=== PATIENT | female | born 1990 | race Caucasian/White ===

== ENCOUNTER 2016-03-02 15:08 | Emergency (ER) | payer OTHER ==
[~2016-03-02 15:08] MED LIST: /TIZA4TA PO; ACET50TA PO; GABA-283 PO; GABA300C2 PO; HYDR-2808 PO; HYDR1TAB97 PO; IBUP80TA PO; METH10CO PO; flexeril PO
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
--- NOTE | 2016-03-02 16:33 | EDDOCDS ---
Physician Documentation [facility] Name: Shellie Oliva Age: 25 yrs Sex: Female : 1990 Arrival Date: 03/02/2016 Time: 15:08 Bed PR Private MD: NO PRIMARY PHYSICIAN, . Disposition: 03/02/16 16:17 Discharged to Home/Self Care. Impression: Superficial injury of head. - Condition is Stable. - Discharge Instructions: Eye Contusion, Head Injury, Adult. - Medication Reconciliation form. - Follow up: Emergency Department; When: As needed; Reason: Worsening of conditions. Follow up: Private Physician; When: Call to arrange an appointment; Reason: Wound/Symptom Recheck, Recheck today's complaints, Worsening of conditions, Continuance of care. - Problem is new. - Symptoms are unchanged. - Notes: May take tylenol as needed for pain. Historical: - Allergies: no known allergies; - Home Meds: 1. Methadone 36mg Oral once daily (Last dose: 03/02/2016 05:30) - PMHx: Substance Abuse; - PSHx: Tonsillectomy; laprascopy; - Social history: Smoking status: Patient uses tobacco products, current every day smoker. Patient/guardian denies using alcohol, street drugs, the patient reports quitting approximately 1 years ago, No barriers to communication noted, The patient speaks fluent Croatian, Speaks appropriately for age. - Family history: Not pertinent. - : The pt / caregiver states he / she is not on anticoagulants. Home medication list is obtained from the patient. - Exposure Risk Screening:: None identified. 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 2 in. (157.48 cm) (R); Pain 9/10; 16:31 BP 135 / 68; Pulse 84; Resp 18; Temp 97(T); Pulse Ox 98% on R/A; rs3 15:10 Body Mass Index 30.00 (74.39 kg, 157.48 cm) gr2 MDM: 15:34 Nasal Bones Ordered. EDMS 16:30 [facility] Payment Agreement was scanned into [employer] and attached to record. jp5 16:30 Financial registration complete. jp5 Signatures: Dispatcher [employer] EDMS Natasha Ovalle,RN RN rs3 Emmie Tinajero RN RN ttb Ricky Cervantes, PAAkbarC PA-C cc10 Sarah Bales jp5 The chart was reviewed and I authenticate all verbal orders and agree with the evaluation and treatment provided.Attachments: 16:30 [facility] Payment Agreement jp5 MTDD
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
--- NOTE | 2016-03-04 17:33 | EDDOCDS ---
[facility] Name: Shellie Oliva Age: 25 yrs Sex: Female : 1990 Arrival Date: 03/02/2016 Time: 15:08 Bed PR Private MD: NO PRIMARY PHYSICIAN, . Disposition: 03/02/16 16:17 Discharged to Home/Self Care. Impression: Superficial injury of head. - Condition is Stable. - Discharge Instructions: Eye Contusion, Head Injury, Adult. - Medication Reconciliation form. - Follow up: Emergency Department; When: As needed; Reason: Worsening of conditions. Follow up: Private Physician; When: Call to arrange an appointment; Reason: Wound/Symptom Recheck, Recheck today's complaints, Worsening of conditions, Continuance of care. - Problem is new. - Symptoms are unchanged. - Notes: May take tylenol as needed for pain. Historical: - Allergies: no known allergies; - Home Meds: 1. Methadone 36mg Oral once daily (Last dose: 03/02/2016 05:30) - PMHx: Substance Abuse; - PSHx: Tonsillectomy; laprascopy; - Social history: Smoking status: Patient uses tobacco products, current every day smoker. Patient/guardian denies using alcohol, street drugs, the patient reports quitting approximately 1 years ago, No barriers to communication noted, The patient speaks fluent [place] Islander, Speaks appropriately for age. - Family history: Not pertinent. - : The pt / caregiver states he / she is not on anticoagulants. Home medication list is obtained from the patient. - Exposure Risk Screening:: None identified. 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 2 in. (157.48 cm) (R); Pain 9/10; 16:31 BP 135 / 68; Pulse 84; Resp 18; Temp 97(T); Pulse Ox 98% on R/A; rs3 15:10 Body Mass Index 30.00 (74.39 kg, 157.48 cm) gr2 MDM: 15:34 Nasal Bones Ordered. EDMS 16:30 [facility] Payment Agreement was scanned into [employer] and attached to record. jp5 16:30 Financial registration complete. jp5 03/03 07:52 T-Sheet-- Draft Copy was scanned into [employer] and attached to record. gb Signatures: Dispatcher [employer] EDMS Anca Llamas, Reg Reg gb Natasha Ovalle,RN RN rs3 Emmie Tinajero RN RN ttb Ricky Cervantes PA-C PA-C cc10 Sarah Bales jp5 The chart was reviewed and I authenticate all verbal orders and agree with the evaluation and treatment provided.Attachments: 03/02 16:30 [facility] Payment Agreement jp5 03/03 07:52 T-Sheet-- Draft Copy gb Chart Complete MTDD
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
--- NOTE | 2016-03-04 17:33 | EDDOCDS ---
Physician Documentation [facility] Name: Shellie Oliva Age: 25 yrs Sex: Female : 1990 Arrival Date: 03/02/2016 Time: 15:08 Bed PR Private MD: NO PRIMARY PHYSICIAN, . Disposition: 03/02/16 16:17 Discharged to Home/Self Care. Impression: Superficial injury of head. - Condition is Stable. - Discharge Instructions: Eye Contusion, Head Injury, Adult. - Medication Reconciliation form. - Follow up: Emergency Department; When: As needed; Reason: Worsening of conditions. Follow up: Private Physician; When: Call to arrange an appointment; Reason: Wound/Symptom Recheck, Recheck today's complaints, Worsening of conditions, Continuance of care. - Problem is new. - Symptoms are unchanged. - Notes: May take tylenol as needed for pain. Historical: - Allergies: no known allergies; - Home Meds: 1. Methadone 36mg Oral once daily (Last dose: 03/02/2016 05:30) - PMHx: Substance Abuse; - PSHx: Tonsillectomy; laprascopy; - Social history: Smoking status: Patient uses tobacco products, current every day smoker. Patient/guardian denies using alcohol, street drugs, the patient reports quitting approximately 1 years ago, No barriers to communication noted, The patient speaks fluent Polish, Speaks appropriately for age. - Family history: Not pertinent. - : The pt / caregiver states he / she is not on anticoagulants. Home medication list is obtained from the patient. - Exposure Risk Screening:: None identified. 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 2 in. (157.48 cm) (R); Pain 9/10; 16:31 BP 135 / 68; Pulse 84; Resp 18; Temp 97(T); Pulse Ox 98% on R/A; rs3 15:10 Body Mass Index 30.00 (74.39 kg, 157.48 cm) gr2 MDM: 15:34 Nasal Bones Ordered. EDMS 16:30 [facility] Payment Agreement was scanned into [employer] and attached to record. jp5 16:30 Financial registration complete. jp5 03/03 07:52 T-Sheet-- Draft Copy was scanned into [employer] and attached to record. gb Signatures: Dispatcher [employer] EDMS Anca Llamas, Reg Reg gb Natasha Ovalle,RN RN rs3 Emmie Tinajero RN RN ttb Ricky Cervantes PA-C PA-C cc10 Sarah Bales jp5 The chart was reviewed and I authenticate all verbal orders and agree with the evaluation and treatment provided.Attachments: 03/02 16:30 [facility] Payment Agreement jp5 03/03 07:52 T-Sheet-- Draft Copy gb Chart Complete MTDD
== END 2016-03-02 16:33 | disposition home or self-care (01) ==
LOC: M ED 15:08
DX: S00.12XA Contusion of left eyelid and periocular area, initial encounter (principal); Y04.0XXA Assault by unarmed brawl or fight, initial encounter; Y92.019 Unspecified place in single-family (private) house as the place of occurrence of the external cause; Y93.89 Activity, other specified; Y99.8 Other external cause status; Z72.0 Tobacco use; Z79.891 Long term (current) use of opiate analgesic

== ENCOUNTER 2016-07-18 06:02 | Inpatient (IN) | payer OTHER ==
[~2016-07-18] VITALS: Ht 157.5 cm; Wt 77.0 kg
[~2016-07-18 06:02] MED LIST changes: +HYDR-3713 PO; -HYDR1TAB97 PO
[2016-07-18 06:17] VITALS: BP 150/82
[2016-07-18 06:24] VITALS: BP 122/81
[2016-07-18] MEDS ORDERED: RHOGAM 300 MCG (1500 IU) INJ (J2790) IM SCH (07:00)
[2016-07-18] MEDS ORDERED: MEASLES,MUMPS,RUBELLA VACCINE INJ (MMR-II) (90707) SC SCH (07:00)
[2016-07-18] MEDS ORDERED: ONDANSETRON 4MG/2ML VIAL (J2405) IV PRN (07:00)
[2016-07-18] MEDS ORDERED: DIBUCAINE 1% OINTMENT 30GM TOP PRN (07:00)
[2016-07-18] MEDS ORDERED: DOCUSATE SODIUM 100 MG CAP PO PRN (07:00)
[2016-07-18] MEDS ORDERED: OXYTOCIN INJ 10 UNITS/ML VIAL (J2590) IM ONE (07:00)
[2016-07-18] MEDS ORDERED: METHYLERGONOVINE MALEATE 0.2 MG TAB PO PRN (07:00)
[2016-07-18 07:29] VITALS: BP 143/81
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
[2016-07-18] MEDS: ACETAMINOPHEN 500 MG TAB PO PRN ×3 (07:49→19:57)
[2016-07-18] MEDS: IBUPROFEN 800 MG TAB PO PRN ×2 (07:49→18:00)
[2016-07-18] MEDS: METHADONE 10 MG TAB (S0109) PO SCH (07:50)
[2016-07-18 07:57] VITALS: BP 132/83
[2016-07-18 09:00] VITALS: BP 141/89
[2016-07-18] MEDS: PRENATAL VITAMIN TAB PO SCH (09:00)
--- NOTE | 2016-07-18 17:38 | DN ---
DATE OF DELIVERY: 07/18/2016 PREDELIVERY DIAGNOSIS: 39-1/7 weeks gestation in labor. POSTDELIVERY DIAGNOSIS: Delivered. PROCEDURE: Spontaneous vaginal delivery. 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 Timothy Pennington ANESTHESIA: None. ESTIMATED BLOOD LOSS: 300 mL. FINDINGS: 6 pound 5 ounce male infant. scores 8 and 9. DELIVERY SUMMARY: After a short second stage, patient had spontaneous delivery of a 6 pound 5 ounce male infant, scores 8 and 9 with no delivery anesthesia. There was no nuchal cord. The shoulders delivered with ease. The cried spontaneously and was handed to the mother. Cord was doubly clamped and cut. Placenta delivered spontaneously and appeared to be intact. The patient received Pitocin intramuscular injection since there was no IV access. There were no vaginal lacerations present. Sponge counts were correct.
[2016-07-18 18:00] VITALS: BP 153/75
[2016-07-18 18:25] LABS: METHADONE URINE POSITIVE (NEGATIVE)
[2016-07-19] MEDS: IBUPROFEN 800 MG TAB PO PRN ×2 (04:55→21:33)
[2016-07-19 06:01] VITALS: BP 133/81
[2016-07-19] MEDS: METHADONE 10 MG TAB (S0109) PO SCH (08:00)
[2016-07-19] MEDS: PRENATAL VITAMIN TAB PO SCH (08:40)
[2016-07-19 17:30] VITALS: BP 139/82
[2016-07-20 05:34] VITALS: BP 144/84
[2016-07-20] MEDS: METHADONE 10 MG TAB (S0109) PO SCH (07:00)
[2016-07-20] MEDS: PRENATAL VITAMIN TAB PO SCH (07:45)
[2016-07-20] MEDS: IBUPROFEN 800 MG TAB PO PRN (07:50)
[2016-07-20] MEDS ORDERED: ADACEL/BOOSTRIX VACCINE (DIPHTH/PERTUSS/ACELL/TETANUS)0.5ML SYR (90715) IM ONE (09:00)
[2016-07-20] MEDS ORDERED: MIRALAX *UNIT DOSE* 17GM PACKET PO SCH (09:00)
[2016-07-20] MEDS ORDERED: IBUP-1114 PO (10:19)
[2016-07-22 14:12] LABS: GC Benzoylecgon 9000 ng/mL (Cutoff=150); GC Methadone 1850 ng/mL (Cutoff=100)
== END 2016-07-20 11:05 | disposition home or self-care (01) | DRG 560 ==
LOC: M LDI 06:02 → M OBS 08:38
PROVIDERS: ADMIT Specialist; ATTEND Specialist
PROC: 10E0XZZ Delivery of Products of Conception, External Approach (ICD-10-PCS; principal; 2016-07-18)
DX: O99.334 Smoking (tobacco) complicating childbirth (principal); F11.21 Opioid dependence, in remission; Z37.0 Single live birth; Z3A.39 39 weeks gestation of pregnancy; F17.210 Nicotine dependence, cigarettes, uncomplicated; O09.33 Supervision of pregnancy with insufficient antenatal care, third trimester; F14.21 Cocaine dependence, in remission; Z79.899 Other long term (current) drug therapy; O99.324 Drug use complicating childbirth

== ENCOUNTER 2016-09-04 15:11 | Emergency (ER) | payer OTHER ==
[~2016-09-04] VITALS: Ht 157.5 cm; Wt 65.2 kg
[~2016-09-04 15:11] MED LIST changes: +IBUP-1114 PO
[2016-09-04] MEDS ORDERED: SOMA350T PO (17:16)
[2016-09-04] MEDS ORDERED: IBUP-1022 PO (17:20)
[2016-09-04 17:23] VITALS: BP 122/76
[2016-09-04] MEDS ORDERED: IBUPROFEN 600 MG TAB PO ONE (17:30)
[2016-09-04] MEDS ORDERED: CARISOPRODOL 350 MG TAB PO ONE (17:30)
== END 2016-09-04 17:34 | disposition home or self-care (01) ==
LOC: M ED 15:11
DX: M54.5 Low back pain (principal); Z87.891 Personal history of nicotine dependence

== ENCOUNTER 2016-11-03 10:02 | Emergency (ER) | payer OTHER ==
[~2016-11-03] VITALS: Ht 157.5 cm; Wt 69.0 kg
[~2016-11-03 10:02] MED LIST changes: +IBUP-1022 PO; +SOMA350T PO
[2016-11-03 10:07] VITALS: BP 125/80
== END 2016-11-03 10:45 | disposition home or self-care (01) ==
LOC: M ED 10:02 → EDBD 10:02 → M ED 10:45
DX: T40.1X1A Poisoning by heroin, accidental (unintentional), initial encounter (principal); Z72.0 Tobacco use

== ENCOUNTER 2016-12-09 09:18 | Emergency (ER) | payer OTHER ==
[~2016-12-09] VITALS: Ht 157.5 cm; Wt 75.0 kg
[2016-12-09 09:28] VITALS: BP 158/77
== END 2016-12-09 11:49 | disposition home or self-care (01) ==
LOC: EDBD 09:18 → M ED 09:18
DX: F11.10 Opioid abuse, uncomplicated (principal); F17.210 Nicotine dependence, cigarettes, uncomplicated

== ENCOUNTER 2017-02-01 18:32 | Emergency (ER) | payer MEDICAID, OTHER ==
[~2017-02-01] VITALS: Ht 157.5 cm; Wt 72.7 kg
[2017-02-01 18:33] VITALS: BP 127/84
[2017-02-01] MEDS ORDERED: KEFL500C17 PO (18:40)
[2017-02-01] MEDS ORDERED: GABA800T PO (18:40)
[2017-02-01] MEDS ORDERED: IBUP-1022 PO (19:31)
[2017-02-01] MEDS ORDERED: CLEO300C2 PO (19:31)
== END 2017-02-01 19:40 | disposition home or self-care (01) ==
LOC: M ED 18:32
DX: L03.114 Cellulitis of left upper limb (principal); H00.016 Hordeolum externum left eye, unspecified eyelid; F11.10 Opioid abuse, uncomplicated; F17.210 Nicotine dependence, cigarettes, uncomplicated

== ENCOUNTER 2017-04-20 23:34 | Emergency (ER) | payer OTHER | END 2017-04-21 00:13 | disposition left against medical advice (07) | LOC: M ED 23:34 | DX: Z53.29 Procedure and treatment not carried out because of patient's decision for other reasons (principal) ==

== ENCOUNTER 2017-07-28 15:54 | Emergency (ER) | payer OTHER ==
[2017-07-28] MEDS: PERCOCET 5MG/325MG TAB PO (18:04)
== END 2017-07-28 18:21 | disposition home or self-care (01) ==
LOC: M ED 15:54
DX: O99.89 Other specified diseases and conditions complicating pregnancy, childbirth and the puerperium (principal); M25.511 Pain in right shoulder; Z3A.25 25 weeks gestation of pregnancy; O99.332 Smoking (tobacco) complicating pregnancy, second trimester; F17.210 Nicotine dependence, cigarettes, uncomplicated
CPT/HCPCS: 99284

== ENCOUNTER 2017-07-29 21:11 | Inpatient (IN) | payer OTHER ==
[2017-07-29] MEDS: NS 1,000 ML IV (22:00)
[2017-07-29 22:35] LABS: VENOUS BASE EXCESS -6.7 (-2.0-2.0); VENOUS HCO3 15.7 MEQ/L (23.0-27.0); VENOUS O2 SATURATION 99.5 % (60.0-80.0); VENOUS PARTIAL PRESSURE CO2 23.6 mmHg (38.0-50.0); VENOUS PARTIAL PRESSURE O2 190.5 mmHg (30.0-50.0); VENOUS TOTAL CO2 16.4 MEQ/L (24.0-28.0)
[2017-07-29 22:39] LABS: HEMATOCRIT 32.1 % (36.0-47.0); HEMOGLOBIN 11.1 g/dl (12.0-15.5); MEAN CORPUSCULAR HEMOGLOBIN 29.2 pg (27.0-33.0); MEAN CORPUSCULAR HGB CONC 34.6 g/dl (32.0-36.5); MEAN CORPUSCULAR VOLUME 84.5 fl (80.0-96.0); PLATELET COUNT, AUTOMATED 132 10^3/uL (150-450); WHITE BLOOD COUNT 14.5 10^3/uL (4.0-10.0)
[2017-07-29 22:42] LABS: POS COUNT POS FLAG; POSITIVE MORPH POS FLAG
[2017-07-29 22:43] LABS: ADD MANUAL DIFFER YES; DIFF SLIDE NUMBER 151
[2017-07-29 22:58] LABS: ACETAMINOPHEN LEVEL < 2.0 UG/ML (10.0-30.0); ALBUMIN 1.6 GM/DL (3.2-5.2); ALBUMIN/GLOBULIN RATIO 0.36 (1.00-1.93); ALT/SGPT 12 U/L (12-78); ANION GAP 12 MEQ/L (8-16); AST/SGOT 30 U/L (7-37); BILIRUBIN,DIRECT 0.4 MG/DL (0.0-0.2); BILIRUBIN,TOTAL 0.6 MG/DL (0.2-1.0); BLOOD UREA NITROGEN 21 MG/DL (7-18); CALCIUM LEVEL 7.3 MG/DL (8.5-10.1); CARBON DIOXIDE LEVEL 17 MEQ/L (21-32); CHLORIDE LEVEL 101 MEQ/L (98-107); CPK CREATINE PHOSPHOKINASE 227 U/L (26-192); CREATININE FOR GFR 1.44 MG/DL (0.55-1.30); GLOMERULAR FILTRATION RATE 46.1 (>60); GLUCOSE, FASTING 113 MG/DL (70-100); POTASSIUM SERUM 2.8 MEQ/L (3.5-5.1); SALICYLATE LEVEL < 1.7 MG/DL (5.0-30.0); SODIUM LEVEL 130 MEQ/L (136-145); TOTAL PROTEIN 6.1 GM/DL (6.4-8.2); TROPONIN I < 0.02 NG/ML (< 0.10)
[2017-07-29 22:59] LABS: ALKALINE PHOSPHATASE 122 U/L (45-117); CK-MB VALUE MASS 6.4 NG/ML (<3.6); MB/CK RELATIVE INDEX 2.81 (< OR =4)
[2017-07-29 23:10] LABS: ATYPICAL LYMPH 1 % (0-5); BANDS 8 % (< 11); BURR CELLS 2+; LYMPHOCYTES 6 % (16-52); MONOCYTES 4 % (0-8); MYELOCYTES 1 % (0-0); NEUTROPHILS 80 % (35-75); PLATELET CLUMPS MODERATE AMT; PLATELET ESTIMATE NORMAL (NORMAL)
[2017-07-29 23:11] LABS: TOXIC GRANULATION 1+
[2017-07-29 23:12] LABS: TOXIC VACUOLATION 1+
[2017-07-30] MEDS: POTASSIUM CHLORIDE 10 MEQ SR TABLET PO ×2 (00:27→14:26)
[2017-07-30] MEDS: ENOXAPARIN 80 MG/0.8 ML SYRINGE (J1650) SC (01:21)
[2017-07-30] MEDS ORDERED: ACETAMINOPHEN 650 MG SUPP PR (01:30)
[2017-07-30 01:52] LABS: INR 1.18; PROTHROMBIN TIME 15.2 SECONDS (12.4-14.5)
[2017-07-30] MEDS: PIPERACILLIN/TAZOBACTAM SOD 3.375 GM in D5W MINI-BAG PLUS 50 ML IV ×3 (02:41→09:10)
[2017-07-30] MEDS: NS 1,000 ML IV ×3 (02:41→19:44)
[2017-07-30 03:34] LABS: LACTIC ACID SEPSIS PROTOCOL 2.3 MMOL/L (0.4-2.0)
[2017-07-30] MEDS: VANCOMYCIN HCL 1,000 MG, VIAL MATE ADAPTER 1 EACH in D5W 250 ML IV ×2 (03:51→19:46)
[2017-07-30 05:19] LABS: ACETAMINOPHEN LEVEL 3.8 UG/ML (10.0-30.0); ALBUMIN 1.4 GM/DL (3.2-5.2); ALBUMIN/GLOBULIN RATIO 0.42 (1.00-1.93); ALKALINE PHOSPHATASE 111 U/L (45-117); ALT/SGPT 11 U/L (12-78); AST/SGOT 22 U/L (7-37); BILIRUBIN,DIRECT 0.3 MG/DL (0.0-0.2); BILIRUBIN,TOTAL 0.5 MG/DL (0.2-1.0); TOTAL PROTEIN 4.7 GM/DL (6.4-8.2)
[2017-07-30] MEDS: VANCOMYCIN HCL 500 MG in D5W MINI-BAG PLUS 100 ML IV (05:28)
[2017-07-30] MEDS: PERCOCET 5MG/325MG TAB PO ×4 (07:46→23:35)
[2017-07-30] MEDS: DOCUSATE SODIUM 100 MG CAP PO ×2 (08:37→19:45)
[2017-07-30] MEDS: ENOXAPARIN 100MG/1ML SYRINGE (J1650) SC ×2 (08:37→19:45)
[2017-07-30] MEDS: PRENATAL VITAMINS CHEWABLE TABLET PO (08:37)
[2017-07-30] MEDS ORDERED: ENOXAPARIN 80 MG/0.8 ML SYRINGE (J1650) SC (09:00)
[2017-07-30 11:21] LABS: HBsAg Prenatal NEGATIVE (NEGATIVE)
[2017-07-30 11:23] LABS: RUBELLA IgG QUALITATIVE IMMUNE (IMMUNE)
[2017-07-30 11:52] LABS: HIV 1&2 SCREEN CENTAUR NEGATIVE (NEGATIVE)
[2017-07-30 13:48] LABS: LACTIC ACID SEPSIS PROTOCOL 1.4 MMOL/L (0.4-2.0)
[2017-07-30 14:03] LABS: ANION GAP 11 MEQ/L (8-16); BLOOD UREA NITROGEN 19 MG/DL (7-18); CALCIUM LEVEL 7.1 MG/DL (8.5-10.1); CARBON DIOXIDE LEVEL 18 MEQ/L (21-32); CHLORIDE LEVEL 108 MEQ/L (98-107); CREATININE FOR GFR 0.79 MG/DL (0.55-1.30); GLOMERULAR FILTRATION RATE > 60.0 (>60); GLUCOSE, FASTING 95 MG/DL (70-100); MAGNESIUM LEVEL 2.3 MG/DL (1.8-2.4); POTASSIUM SERUM 3.2 MEQ/L (3.5-5.1); SODIUM LEVEL 137 MEQ/L (136-145)
[2017-07-30 14:07] LABS: ACETAMINOPHEN LEVEL 7.9 UG/ML (10.0-30.0); ALBUMIN 1.4 GM/DL (3.2-5.2); ALBUMIN/GLOBULIN RATIO 0.41 (1.00-1.93); ALKALINE PHOSPHATASE 121 U/L (45-117); ALT/SGPT 12 U/L (12-78); AST/SGOT 22 U/L (7-37); BILIRUBIN,DIRECT 0.3 MG/DL (0.0-0.2); BILIRUBIN,TOTAL 0.4 MG/DL (0.2-1.0); TOTAL PROTEIN 4.8 GM/DL (6.4-8.2)
[2017-07-30] MEDS: CALCIUM GLUCONATE 1,000 MG in D5W MINI-BAG PLUS 100 ML IV (14:35)
[2017-07-30] MEDS: LORazepam 2 MG/ML VIAL (J2060) IV (16:04)
[2017-07-30] MEDS: ACETAMINOPHEN TAB 650MG DOSE (2X325MG) PO (19:46)
[2017-07-30] MEDS: ONDANSETRON 4 MG TAB (S0181) PO (20:15)
[2017-07-30 21:16] LABS: ACETAMINOPHEN LEVEL 16.3 UG/ML (10.0-30.0); ALBUMIN 1.4 GM/DL (3.2-5.2); ALBUMIN/GLOBULIN RATIO 0.38 (1.00-1.93); ALKALINE PHOSPHATASE 143 U/L (45-117); ALT/SGPT 12 U/L (12-78); AST/SGOT 24 U/L (7-37); BILIRUBIN,DIRECT 0.3 MG/DL (0.0-0.2); BILIRUBIN,TOTAL 0.5 MG/DL (0.2-1.0); TOTAL PROTEIN 5.1 GM/DL (6.4-8.2)
[2017-07-30] MEDS: CLINDAMYCIN 900 MG in APPROPRIATE DILUENT 1 EA IV (22:04)
[2017-07-31 08:06] LABS: HEPATITIS BE ANTIGEN Negative (Negative)
[2017-08-01 00:07] LABS: MAGNESIUM RBC LEVEL 4.8 mg/dL (4.2-6.8)
== END 2017-07-31 00:20 | disposition short-term general hospital (02) | DRG 566 ==
LOC: M ED INP 07-30 01:24 → M ICU 07-30 01:45 → M ED 21:11
DX: O9A.212 Injury, poisoning and certain other consequences of external causes complicating pregnancy, second trimester (principal); A41.02 Sepsis due to Methicillin resistant Staphylococcus aureus; J18.9 Pneumonia, unspecified organism; N17.9 Acute kidney failure, unspecified; M00.9 Pyogenic arthritis, unspecified; I82.621 Acute embolism and thrombosis of deep veins of right upper extremity; I38 Endocarditis, valve unspecified; O98.812 Other maternal infectious and parasitic diseases complicating pregnancy, second trimester; R65.20 Severe sepsis without septic shock; E83.51 Hypocalcemia; T40.2X1A Poisoning by other opioids, accidental (unintentional), initial encounter; E87.6 Hypokalemia; Z3A.25 25 weeks gestation of pregnancy; M60.811 Other myositis, right shoulder; F32.9 Major depressive disorder, single episode, unspecified; F41.9 Anxiety disorder, unspecified; F11.90 Opioid use, unspecified, uncomplicated; M79.605 Pain in left leg; M79.604 Pain in right leg; Z91.19 Patient's noncompliance with other medical treatment and regimen; Z87.891 Personal history of nicotine dependence; Z79.899 Other long term (current) drug therapy; B95.62 Methicillin resistant Staphylococcus aureus infection as the cause of diseases classified elsewhere; O99.412 Diseases of the circulatory system complicating pregnancy, second trimester; O99.512 Diseases of the respiratory system complicating pregnancy, second trimester; O99.322 Drug use complicating pregnancy, second trimester

== ENCOUNTER 2017-11-14 11:43 | Emergency (ER) | payer OTHER ==
[2017-11-14] MEDS: ACETAMINOPHEN 325 MG TAB PO (12:45)
== END 2017-11-14 15:24 | disposition home or self-care (01) ==
LOC: M ED 11:43
DX: O90.2 Hematoma of obstetric wound (principal); B37.2 Candidiasis of skin and nail; O99.335 Smoking (tobacco) complicating the puerperium; F17.210 Nicotine dependence, cigarettes, uncomplicated
CPT/HCPCS: 76705

== ENCOUNTER 2018-01-03 11:56 | Emergency (ER) | payer OTHER ==
[2018-01-03 13:19] LABS: BASO % 0.3 % (0.0-1.0); EOS # 0.2 10^3/uL (0.0-0.50); EOS % 3.4 % (0.0-3.0); HEMATOCRIT 39.4 % (36.0-47.0); HEMOGLOBIN 12.9 g/dl (12.0-15.5); IMMATURE GRANULOCYTE % 0.3 % (0-3.0); LYMPH # 2.5 10^3/uL (1.5-6.5); LYMPH % 41.8 % (24.0-44.0); MEAN CORPUSCULAR HEMOGLOBIN 29.1 pg (27.0-33.0); MEAN CORPUSCULAR HGB CONC 32.7 g/dl (32.0-36.5); MEAN CORPUSCULAR VOLUME 88.7 fl (80.0-96.0); MONO # 0.4 10^3/uL (0.0-0.8); MONO % 7.3 % (0.0-5.0); NEUTROPHILS # 2.7 10^3/uL (1.8-7.7); NEUTROPHILS % 46.9 % (36.0-66.0); PLATELET COUNT, AUTOMATED 223 10^3/uL (150-450); RED BLOOD COUNT 4.44 10^6/uL (4.00-5.40); RED CELL DISTRIBUTION WIDTH 13.2 % (11.5-14.5); WHITE BLOOD COUNT 5.9 10^3/uL (4.0-10.0)
[2018-01-03 13:35] LABS: INR 1.11; PROTHROMBIN TIME 14.4 SECONDS (12.1-14.4)
[2018-01-03 13:36] LABS: PARTIAL THROMBOPLASTIN TIME 32.7 SECONDS (25.4-37.6)
[2018-01-03 13:45] LABS: ANION GAP 7 MEQ/L (8-16); BLOOD UREA NITROGEN 8 MG/DL (7-18); CALCIUM LEVEL 8.7 MG/DL (8.5-10.1); CARBON DIOXIDE LEVEL 26 MEQ/L (21-32); CHLORIDE LEVEL 108 MEQ/L (98-107); CREATININE FOR GFR 0.67 MG/DL (0.55-1.30); GLOMERULAR FILTRATION RATE > 60.0 (>60); GLUCOSE, FASTING 85 MG/DL (70-100); SODIUM LEVEL 141 MEQ/L (136-145)
== END 2018-01-03 13:59 | disposition home or self-care (01) ==
LOC: M ED 11:56
DX: M25.561 Pain in right knee (principal); R53.83 Other fatigue; Z86.718 Personal history of other venous thrombosis and embolism; Z79.01 Long term (current) use of anticoagulants; Z79.891 Long term (current) use of opiate analgesic
CPT/HCPCS: 93971

== ENCOUNTER → 2018-08-28 | Outpatient (CLI) | payer OTHER ==
[~2018-08-28] MED LIST changes: -/TIZA4TA PO; -ACET50TA PO; +CLEO300C2 PO; -GABA-283 PO; +GABA-843 PO; +GABA-845 PO; +GABA800T4 PO; +IBUP1TAB7 PO; +KEFL500C17 PO; +LOVE1INJ SC; +MAPA500T2 PO; +NYST1POW9 TOP; +OXYC1TAB23 PO; +PERC5TAB12 PO; +TIZA1TAB19 PO
[2018-08-28 18:01] LABS: ALBUMIN 3.8 GM/DL (3.2-5.2); ALT/SGPT 22 U/L (12-78); BILIRUBIN,TOTAL 0.4 MG/DL (0.2-1.0); BLOOD UREA NITROGEN 12 MG/DL (7-18); CALCIUM LEVEL 8.9 MG/DL (8.5-10.1); CARBON DIOXIDE LEVEL 28 MEQ/L (21-32); CHLORIDE LEVEL 106 MEQ/L (98-107); GLOMERULAR FILTRATION RATE > 60.0 (>60); GLUCOSE, FASTING 76 MG/DL (70-100); POTASSIUM SERUM 4.4 MEQ/L (3.5-5.1); SODIUM LEVEL 140 MEQ/L (136-145); TOTAL PROTEIN 7.6 GM/DL (6.4-8.2)
[2018-08-28 18:12] LABS: HEMATOCRIT 39.1 % (36.0-47.0); HEMOGLOBIN 12.5 g/dl (12.0-15.5); MEAN CORPUSCULAR HEMOGLOBIN 28.7 pg (27.0-33.0); MEAN CORPUSCULAR VOLUME 89.9 fl (80.0-96.0); PLATELET COUNT, AUTOMATED 222 10^3/uL (150-450); RED BLOOD COUNT 4.35 10^6/uL (4.00-5.40); WHITE BLOOD COUNT 5.8 10^3/uL (4.0-10.0)
[2018-08-28 18:40] LABS: HCG, SERUM QUALITATIVE NEGATIVE (NEGATIVE)
[2018-08-28 18:47] LABS: HIV 1&2 SCREEN CENTAUR NEGATIVE (NEGATIVE)
[2018-08-29 08:04] LABS: CHLAMYDIA DNA AMPLIFICATION NEGATIVE (NEGATIVE); GC DNA AMPLIFICATION NEGATIVE (NEGATIVE)
[2018-08-30 11:24] LABS: HEPATITIS B SURFACE ANTIGEN NEGATIVE (NEGATIVE)
[2018-08-30 11:52] LABS: HEPATITIS C VIRUS ABY INDEX 0.3 INDEX (<0.8)
== END ==
LOC: M WUC 12:06
PROVIDERS: ATTEND Family Medicine
DX: F11.20 Opioid dependence, uncomplicated (principal)

== ENCOUNTER 2018-11-06 15:45 | Emergency (ER) | payer OTHER ==
[~2018-11-06] VITALS: Ht 157.5 cm; Wt 79.0 kg
[2018-11-06] MEDS ORDERED: PROZ40CA PO (16:06)
[2018-11-06] MEDS ORDERED: BUSP15TA47 PO (16:06)
[2018-11-06] MEDS ORDERED: CLONI1TA PO ×2 (16:06)
[2018-11-06] MEDS ORDERED: BUPR150T3 PO (16:06)
[2018-11-06] MEDS ORDERED: ONDANSETRON 4 MG ORAL DISINTEGRATING TAB (Q0162 PER 1MG) PO ONE (16:30)
[2018-11-06] MEDS ORDERED: ACETAMINOPHEN 325 MG TAB PO ONE (16:30)
[2018-11-06 16:50] LABS: BASO % 0.2 % (0.0-1.0); EOS % 0.1 % (0.0-3.0); HEMATOCRIT 38.1 % (36.0-47.0); HEMOGLOBIN 12.9 g/dl (12.0-15.5); LYMPH # 1.2 10^3/uL (1.5-5.0); LYMPH % 9.6 % (24.0-44.0); MEAN CORPUSCULAR HEMOGLOBIN 30.6 pg (27.0-33.0); MEAN CORPUSCULAR HGB CONC 33.9 g/dl (32.0-36.5); MEAN CORPUSCULAR VOLUME 90.5 fl (80.0-96.0); MONO # 1.1 10^3/uL (0.0-0.8); MONO % 8.6 % (0.0-5.0); NEUTROPHILS # 10.2 10^3/uL (1.5-8.5); PLATELET COUNT, AUTOMATED 167 10^3/uL (150-450); RED BLOOD COUNT 4.21 10^6/uL (4.00-5.40); WHITE BLOOD COUNT 12.6 10^3/uL (4.0-10.0)
[2018-11-06 17:13] LABS: ALBUMIN 3.7 GM/DL (3.2-5.2); ALT/SGPT 41 U/L (12-78); BILIRUBIN,DIRECT 0.3 MG/DL (0.0-0.2); BILIRUBIN,TOTAL 0.6 MG/DL (0.2-1.0); BLOOD UREA NITROGEN 11 MG/DL (7-18); CARBON DIOXIDE LEVEL 28 MEQ/L (21-32); CHLORIDE LEVEL 99 MEQ/L (98-107); CREATININE FOR GFR 0.91 MG/DL (0.55-1.30); GLOMERULAR FILTRATION RATE > 60.0 (>60); GLUCOSE, FASTING 83 MG/DL (70-100); SODIUM LEVEL 135 MEQ/L (136-145); TOTAL PROTEIN 7.7 GM/DL (6.4-8.2)
[2018-11-06] MEDS ORDERED: ONDA4TAB6 PO (18:07)
[2018-11-06] MEDS ORDERED: MACR100C43 PO (18:07)
[2018-11-06] MEDS ORDERED: cefTRIAXone SOD 1 GM VIAL (J0696) IM ONE (18:15)
[2018-11-06] MEDS ORDERED: LIDOCAINE 1% SDV 5 ML VIAL DILUENT ONE (18:15)
[2018-11-06 18:32] VITALS: BP 111/59
== END 2018-11-06 18:38 | disposition home or self-care (01) ==
LOC: M ED 15:45
DX: N39.0 Urinary tract infection, site not specified (principal); F17.200 Nicotine dependence, unspecified, uncomplicated; Z79.899 Other long term (current) drug therapy
CPT/HCPCS: 36415; 80048; 80076; 81001; 85025; 87088; 87186; 96372; 99284; J0696; Q0162

== ENCOUNTER → 2018-12-26 | Outpatient (CLI) | payer OTHER ==
[~2018-12-26] MED LIST changes: +BUPR150T3 PO; +BUSP15TA47 PO; +CLONI1TA PO; +MACR100C43 PO; +ONDA4TAB6 PO; +PROZ40CA PO
[2018-12-26 12:57] LABS: BASO % 0.2 % (0.0-1.0); EOS # 0.1 10^3/uL (0.0-0.5); EOS % 2.7 % (0.0-3.0); HEMATOCRIT 41.9 % (36.0-47.0); HEMOGLOBIN 13.6 g/dl (12.0-15.5); LYMPH # 1.9 10^3/uL (1.5-5.0); LYMPH % 35.7 % (24.0-44.0); MEAN CORPUSCULAR HEMOGLOBIN 29.2 pg (27.0-33.0); MEAN CORPUSCULAR HGB CONC 32.5 g/dl (32.0-36.5); MEAN CORPUSCULAR VOLUME 90.1 fl (80.0-96.0); MONO # 0.4 10^3/uL (0.0-0.8); NEUTROPHILS # 2.8 10^3/uL (1.5-8.5); NEUTROPHILS % 53.2 % (36.0-66.0); PLATELET COUNT, AUTOMATED 172 10^3/uL (150-450); RED BLOOD COUNT 4.65 10^6/uL (4.00-5.40); WHITE BLOOD COUNT 5.2 10^3/uL (4.0-10.0)
[2018-12-26 13:26] LABS: ALBUMIN 3.8 GM/DL (3.2-5.2); ALT/SGPT 35 U/L (12-78); BILIRUBIN,TOTAL 0.2 MG/DL (0.2-1.0); BLOOD UREA NITROGEN 10 MG/DL (7-18); CARBON DIOXIDE LEVEL 28 MEQ/L (21-32); CHLORIDE LEVEL 106 MEQ/L (98-107); CREATININE FOR GFR 0.76 MG/DL (0.55-1.30); GLOMERULAR FILTRATION RATE > 60.0 (>60); GLUCOSE, FASTING 55 MG/DL (70-100); POTASSIUM SERUM 4.2 MEQ/L (3.5-5.1); SODIUM LEVEL 139 MEQ/L (136-145); TOTAL PROTEIN 7.6 GM/DL (6.4-8.2)
--- NOTE | 2018-12-26 16:59 | ECGEPIP ---
[facility] Test Date: 2018-12-26 Pat Name: RENETTA PARK Department: Room: - Gender: Female Ccna: SUKHJINDER : 1990 Requested By: Silvestre Lonodn Order Number: [id number] Reading MD: Elio Bermeo Measurements Intervals [place] Rate: 64 P: 37 CO: 130 QRS: 16 QRSD: 91 T: 17 QT: 444 QTc: 459 Interpretive Statements SINUS RHYTHM Poor R wave progression Nonspecific T wave abnormalities. Decreased heart rate compared with 07/29/2017 Electronically Signed on 12-26-2018 16:59:00 EDT by Elio Bermeo
[2018-12-27 09:37] LABS: HEPATITIS B SURFACE ANTIGEN NEGATIVE (NEGATIVE)
[2018-12-27 09:59] LABS: HEPATITIS B CORE ANTIBODY IGM NEGATIVE (NEGATIVE)
[2018-12-27 10:01] LABS: HEPATITIS A ANTIBODY IGM NEGATIVE (NEGATIVE)
== END ==
LOC: M LAB 11:39
PROVIDERS: ATTEND Family Medicine
DX: F11.20 Opioid dependence, uncomplicated (principal)

== ENCOUNTER 2019-04-15 20:11 | Emergency (ER) | payer OTHER ==
[~2019-04-15] VITALS: Ht 157.5 cm; Wt 75.6 kg
[2019-04-15] MEDS ORDERED: METH4PACK (20:16)
[2019-04-15 21:05] LABS: HEMATOCRIT 33.2 % (36.0-47.0); HEMOGLOBIN 10.5 g/dl (12.0-15.5); MEAN CORPUSCULAR HEMOGLOBIN 28.6 pg (27.0-33.0); MEAN CORPUSCULAR HGB CONC 31.6 g/dl (32.0-36.5); MEAN CORPUSCULAR VOLUME 90.5 fl (80.0-96.0); PLATELET COUNT, AUTOMATED 175 10^3/uL (150-450); RED BLOOD COUNT 3.67 10^6/uL (4.00-5.40); WHITE BLOOD COUNT 8.3 10^3/uL (4.0-10.0)
[2019-04-15 21:18] LABS: APPEARANCE, URINE HAZY (CLEAR); BACTERIA, URINE AUTO 2+ (NEGATIVE); BILIRUBIN, URINE AUTO NEGATIVE (NEGATIVE); BLOOD, URINE BLOOD 2+ (NEGATIVE); COLOR, URINE YELLOW (YELLOW); GLUCOSE, URINE (UA) AUTO NEGATIVE (NEGATIVE); KETONE, URINE AUTO NEGATIVE (NEGATIVE); LEUKOCYTE ESTERASE, URINE AUTO 3+ (NEGATIVE); NITRITE, URINE AUTO NEGATIVE (NEGATIVE); PROTEIN, URINE AUTO NEGATIVE (NEGATIVE); RBC, URINE AUTO 6 /HPF (0-3); SPECIFIC GRAVITY URINE AUTO 1.002 (1.002-1.035); SQUAMOUS EPITHELIAL CELL UR AU 0 /HPF (0-6); UROBILINOGEN, URINE AUTO 0.2 mg/dL (0.0-2.0); WBC, URINE AUTO TNTC /HPF (0-3)
[2019-04-15 21:25] LABS: ALBUMIN 2.5 GM/DL (3.2-5.2); ALT/SGPT 22 U/L (12-78); BILIRUBIN,TOTAL 0.2 MG/DL (0.2-1.0); BLOOD UREA NITROGEN 11 MG/DL (7-18); CALCIUM LEVEL 8.3 MG/DL (8.5-10.1); CARBON DIOXIDE LEVEL 30 MEQ/L (21-32); CHLORIDE LEVEL 104 MEQ/L (98-107); CREATININE FOR GFR 0.99 MG/DL (0.55-1.30); GLOMERULAR FILTRATION RATE > 60.0 (>60); GLUCOSE, FASTING 88 MG/DL (70-100); POTASSIUM SERUM 3.1 MEQ/L (3.5-5.1); SODIUM LEVEL 137 MEQ/L (136-145); TOTAL PROTEIN 6.6 GM/DL (6.4-8.2)
[2019-04-15 21:29] LABS: HCG, SERUM QUALITATIVE NEGATIVE (NEGATIVE)
[2019-04-15] MEDS ORDERED: IBUPROFEN 800 MG TAB PO ONE (21:30)
[2019-04-15] MEDS ORDERED: CEFD300CAP PO (22:23)
[2019-04-15] MEDS ORDERED: IBUP80TA PO (22:23)
[2019-04-15] MEDS ORDERED: IBUPROFEN 600 MG TAB PO ONE (22:30)
[2019-04-15] MEDS ORDERED: CEFDINIR 300 MG CAP (OMNICEF) PO ONE (22:30)
[2019-04-15 22:34] VITALS: BP 143/83
--- NOTE | 2019-04-15 22:55 | REPVR ---
PROCEDURE INFORMATION: Exam: US Retroperitoneal Limited, Kidneys Exam date and time: 04/15/2019 10:06 PM Age: 28 years old Clinical indication: Abdominal pain; Flank; Left; Additional info: Left flank pain TECHNIQUE: Imaging protocol: Real-time ultrasound of the retroperitoneum with image documentation. Examination was focused on the kidneys. COMPARISON: Abdomen, limited US 11/14/2017 1:31 PM FINDINGS: Right kidney: Right kidney measures 13.6 x 6.3 x 5.7 cm. Normal flow. No hydronephrosis. Left kidney: Left kidney measures 13.4 x 6 x 6.5 cm. Normal flow. No hydronephrosis. Bladder: Bladder normal. Bilateral ureteral jets demonstrated. IMPRESSION: Normal study. Electronically signed by: Ned Garcia On 04/15/2019 22:54:35 PM
== END 2019-04-15 22:37 | disposition home or self-care (01) ==
LOC: M ED 20:11
DX: N39.0 Urinary tract infection, site not specified (principal); N10 Acute pyelonephritis; Z86.718 Personal history of other venous thrombosis and embolism; N80.9 Endometriosis, unspecified; M54.9 Dorsalgia, unspecified; Z87.81 Personal history of (healed) traumatic fracture; F41.9 Anxiety disorder, unspecified; F32.9 Major depressive disorder, single episode, unspecified; F11.10 Opioid abuse, uncomplicated; Z79.899 Other long term (current) drug therapy

== ENCOUNTER 2019-04-26 07:24 | Emergency (ER) | payer OTHER ==
[~2019-04-26] VITALS: Ht 157.5 cm; Wt 73.3 kg
[~2019-04-26 07:24] MED LIST changes: +CEFD300CAP PO; +METH4PACK
[2019-04-26 08:57] LABS: HCG, SERUM QUALITATIVE NEGATIVE (NEGATIVE)
[2019-04-26 09:19] VITALS: BP 128/78
== END 2019-04-26 09:23 | disposition home or self-care (01) ==
LOC: M ED 07:24
DX: F32.9 Major depressive disorder, single episode, unspecified (principal); F41.9 Anxiety disorder, unspecified; N80.9 Endometriosis, unspecified; K59.00 Constipation, unspecified; G89.29 Other chronic pain; M54.9 Dorsalgia, unspecified; Z86.14 Personal history of Methicillin resistant Staphylococcus aureus infection; F17.200 Nicotine dependence, unspecified, uncomplicated; Z79.899 Other long term (current) drug therapy

== ENCOUNTER 2019-06-01 15:13 | Emergency (ER) | payer OTHER ==
[~2019-06-01] VITALS: Ht 157.5 cm; Wt 68.2 kg
[2019-06-01] MEDS ORDERED: FLUoxetine 20 MG CAP PO ONE (16:00)
[2019-06-01] MEDS ORDERED: ACETAMINOPHEN 325 MG TAB PO ONE (16:00)
[2019-06-01] MEDS ORDERED: cloNIDine 0.1 MG TAB PO ONE (16:00)
[2019-06-01 16:05] VITALS: BP 158/100
[2019-06-01 16:22] LABS: BASO % 0.2 % (0.0-1.0); EOS % 0.5 % (0.0-3.0); HEMATOCRIT 45.7 % (36.0-47.0); HEMOGLOBIN 14.9 g/dl (12.0-15.5); LYMPH # 1.6 10^3/uL (1.5-5.0); LYMPH % 24.4 % (24.0-44.0); MEAN CORPUSCULAR HEMOGLOBIN 29.4 pg (27.0-33.0); MEAN CORPUSCULAR HGB CONC 32.6 g/dl (32.0-36.5); MEAN CORPUSCULAR VOLUME 90.3 fl (80.0-96.0); MONO # 0.4 10^3/uL (0.0-0.8); MONO % 6.2 % (0.0-5.0); NEUTROPHILS # 4.4 10^3/uL (1.5-8.5); NEUTROPHILS % 68.2 % (36.0-66.0); PLATELET COUNT, AUTOMATED 234 10^3/uL (150-450); RED BLOOD COUNT 5.06 10^6/uL (4.00-5.40); WHITE BLOOD COUNT 6.5 10^3/uL (4.0-10.0)
[2019-06-01 16:37] LABS: INR 0.97; PARTIAL THROMBOPLASTIN TIME 25.8 SECONDS (25.0-38.4); PROTHROMBIN TIME 12.6 SECONDS (11.8-14.0)
[2019-06-01 16:41] LABS: ERYTHROCYTE SEDIMENTATION RATE 7 mm/hr (0-20)
[2019-06-01 16:49] LABS: ALBUMIN 4.7 GM/DL (3.2-5.2); ALT/SGPT 32 U/L (12-78); BILIRUBIN,TOTAL 0.2 MG/DL (0.2-1.0); BLOOD UREA NITROGEN 12 MG/DL (7-18); C REACTIVE PROTEIN QUANTITATIV < 0.30 MG/DL (0.00-0.30); CALCIUM LEVEL 9.9 MG/DL (8.5-10.1); CARBON DIOXIDE LEVEL 28 MEQ/L (21-32); CHLORIDE LEVEL 109 MEQ/L (98-107); CREATININE FOR GFR 0.74 MG/DL (0.55-1.30); GLOMERULAR FILTRATION RATE > 60.0 (>60); GLUCOSE, FASTING 94 MG/DL (70-100); POTASSIUM SERUM 4.1 MEQ/L (3.5-5.1); SODIUM LEVEL 140 MEQ/L (136-145); TOTAL PROTEIN 8.9 GM/DL (6.4-8.2)
[2019-06-01] MEDS ORDERED: APIXABAN 5 MG TAB (ELIQUIS) PO ONE (17:00)
[2019-06-01] MEDS ORDERED: PROZ40CA PO (17:11)
[2019-06-01] MEDS ORDERED: CLONI1TA PO (17:11)
[2019-06-01] MEDS ORDERED: ELIQ5TAB PO (17:11)
[2019-06-01 17:56] VITALS: BP 139/86
--- NOTE | 2019-06-02 07:35 | REP ---
LEFT LOWER EXTREMITY DUPLEX DOPPLER VENOUS ULTRASOUND: Real-time compression and duplex Doppler interrogation of the left lower extremity deep venous system is performed. Left common femoral and superficial femoral veins are fully compressible with transducer pressure and demonstrate normal spontaneous and phasic flow without evidence of deep venous thrombosis. However, there is nonocclusive thrombus in the left popliteal vein. IMPRESSION: Nonocclusive thrombus left popliteal vein. Electronically Signed by Silvestre Cesar MD 06/02/2019 10:19 A
[2019-06-02] MEDS ORDERED: NON-325T5 PO (12:50)
== END 2019-06-01 17:59 | disposition home or self-care (01) ==
LOC: M ED 15:13
DX: I82.432 Acute embolism and thrombosis of left popliteal vein (principal); Z86.718 Personal history of other venous thrombosis and embolism; G43.909 Migraine, unspecified, not intractable, without status migrainosus; K59.00 Constipation, unspecified; N80.9 Endometriosis, unspecified; F41.9 Anxiety disorder, unspecified; F32.9 Major depressive disorder, single episode, unspecified; F11.10 Opioid abuse, uncomplicated; Z79.01 Long term (current) use of anticoagulants; Z79.899 Other long term (current) drug therapy

== ENCOUNTER 2019-06-02 12:40 | Emergency (ER) | payer OTHER ==
[~2019-06-02] VITALS: Ht 157.5 cm; Wt 72.6 kg
[~2019-06-02 12:40] MED LIST changes: +ELIQ5TAB PO
[2019-06-02] MEDS ORDERED: NON-325T5 PO (12:50)
--- NOTE | 2019-06-02 14:14 | REP ---
Duplex extremity venous ultrasound: Right lower extremity. History: Right lower extremity pain. History of DVT. Findings: The deep veins are anechoic and fully compressible from the groin to the popliteal fossa in the right lower extremity. Color flow imaging is homogeneous. Spectral Doppler interrogation demonstrates intact respiratory variation in flow and normal manual augmentation of flow. There is no evidence of deep vein thrombosis. Impression: Negative right lower extremity duplex venous ultrasound. No evidence of deep vein thrombosis. Electronically Signed by Fredy Vora MD 06/02/2019 02:05 P
[2019-06-02 16:38] LABS: BASO % 0.2 % (0.0-1.0); EOS % 0.7 % (0.0-3.0); HEMOGLOBIN 14.3 g/dl (12.0-15.5); LYMPH # 1.8 10^3/uL (1.5-5.0); LYMPH % 30.1 % (24.0-44.0); MEAN CORPUSCULAR HEMOGLOBIN 30.2 pg (27.0-33.0); MEAN CORPUSCULAR HGB CONC 33.3 g/dl (32.0-36.5); MEAN CORPUSCULAR VOLUME 90.7 fl (80.0-96.0); MONO # 0.4 10^3/uL (0.0-0.8); MONO % 7.1 % (0.0-5.0); NEUTROPHILS # 3.6 10^3/uL (1.5-8.5); NEUTROPHILS % 61.7 % (36.0-66.0); PLATELET COUNT, AUTOMATED 228 10^3/uL (150-450); RED BLOOD COUNT 4.74 10^6/uL (4.00-5.40); WHITE BLOOD COUNT 5.9 10^3/uL (4.0-10.0)
[2019-06-02 16:44] LABS: ALBUMIN 4.1 GM/DL (3.2-5.2); ALT/SGPT 32 U/L (12-78); BILIRUBIN,DIRECT 0.1 MG/DL (0.0-0.2); BILIRUBIN,TOTAL 0.5 MG/DL (0.2-1.0); BLOOD UREA NITROGEN 15 MG/DL (7-18); CALCIUM LEVEL 9.3 MG/DL (8.5-10.1); CARBON DIOXIDE LEVEL 21 MEQ/L (21-32); CHLORIDE LEVEL 111 MEQ/L (98-107); GLOMERULAR FILTRATION RATE > 60.0 (>60); GLUCOSE, FASTING 90 MG/DL (70-100); POTASSIUM SERUM 4.2 MEQ/L (3.5-5.1); SODIUM LEVEL 141 MEQ/L (136-145)
[2019-06-02 16:52] LABS: INR 1.27; PROTHROMBIN TIME 15.6 SECONDS (11.8-14.0)
[2019-06-02] MEDS ORDERED: ISOVUE-370 76% 100ML VIAL (Q9967) As Ordered ONE (17:50)
--- NOTE | 2019-06-02 18:16 | REPVR ---
PROCEDURE INFORMATION: Exam: CT Angiography Chest With Contrast Exam date and time: 06/02/2019 5:57 PM Age: 29 years old Clinical indication: Shortness of breath; Chest pain; Additional info: Cp/sob/hx dvt TECHNIQUE: Imaging protocol: Computed tomographic angiography of the chest with intravenous contrast. 3D rendering: MIP and/or 3D reconstructed images were created by the technologist. Radiation optimization: All CT scans at this facility use at least one of these dose optimization techniques: automated exposure control; mA and/or kV adjustment per patient size (includes targeted exams where dose is matched to clinical indication); or iterative reconstruction. Contrast material: ISOVUE 370; Contrast volume: 100 ml; Contrast route: IV; COMPARISON: [facility] Chest, 1 view 07/30/2017 5:02 PM FINDINGS: Pulmonary arteries: No pulmonary embolus is identified. Aorta: The thoracic aorta is nonaneurysmal. Lungs: The lungs demonstrate minor dependent atelectasis. There is minor scarring at the apices. A 5 mm nodule is present in the right upper lobe (image [id number]). The lungs are otherwise clear. The central airways appear patent. Pleural space: Unremarkable. No pneumothorax. No pleural effusion. Heart: Unremarkable. No cardiomegaly. No pericardial effusion. Liver: The liver contains a few tiny calcified granulomas. Lymph nodes: Unremarkable. No enlarged lymph nodes. Bones/joints: Unremarkable. No acute fracture. Soft tissues: Unremarkable. IMPRESSION: 1. No pulmonary embolus or other acute thoracic disease identified. 2. 5 mm right upper lobe nodule. If patient does not have known cancer, follow up should be based on clinical information because of the low risk of cancer in this age group. (kavon Mar al., Fleischner Society, 2017) Electronically signed by: Jeffry Gomez On 06/02/2019 18:16:30 PM
[2019-06-02] MEDS ORDERED: cloNIDine 0.1 MG TAB PO ONE (18:30)
[2019-06-02 18:40] VITALS: BP 148/83
[2019-06-02 18:52] VITALS: BP 136/86
== END 2019-06-02 19:03 | disposition home or self-care (01) ==
LOC: M ED 12:40
DX: R07.89 Other chest pain (principal); I82.401 Acute embolism and thrombosis of unspecified deep veins of right lower extremity; R91.1 Solitary pulmonary nodule; Z86.718 Personal history of other venous thrombosis and embolism; R51 Headache; N80.9 Endometriosis, unspecified; M54.9 Dorsalgia, unspecified; F41.9 Anxiety disorder, unspecified; F32.9 Major depressive disorder, single episode, unspecified; F11.20 Opioid dependence, uncomplicated; Z91.14 Patient's other noncompliance with medication regimen; Z79.899 Other long term (current) drug therapy
CPT/HCPCS: 36415; 71275; 80048; 80076; 85025; 85610; 85730; 93971; 99284; Q9967

== ENCOUNTER → 2019-06-17 | Outpatient (REF) | payer OTHER ==
[~2019-06-17] MED LIST changes: +NON-325T5 PO
[2019-06-17 15:02] LABS: CHLAMYDIA DNA AMPLIFICATION NEGATIVE (NEGATIVE); GC DNA AMPLIFICATION NEGATIVE (NEGATIVE)
== END ==
LOC: M LAB REF 12:40
PROVIDERS: ATTEND Surgery
DX: A64 Unspecified sexually transmitted disease (principal)

== ENCOUNTER 2019-06-30 19:51 | Emergency (ER) | payer MEDICAID, OTHER ==
[~2019-06-30] VITALS: Ht 157.5 cm; Wt 71.3 kg
[2019-06-30] MEDS: ALPRAZolam 0.5 MG TAB PO ONE (21:17)
[2019-06-30] MEDS: ACETAMINOPHEN 325 MG TAB PO ONE (21:17)
[2019-06-30] MEDS ORDERED: CLONI1TA PO (22:46)
[2019-06-30] MEDS ORDERED: FLUO40CA PO (22:46)
[2019-06-30] MEDS ORDERED: AUGM875T28 PO (22:46)
[2019-06-30] MEDS ORDERED: ELIQ5TAB PO (22:46)
[2019-06-30 22:56] VITALS: BP 167/103
--- NOTE | 2019-07-01 02:58 | REP ---
Clinical: Trauma. Technique: AP, lateral, bilateral oblique views left second digit . Findings: The osseous structures and joint spaces are intact and normal. There is no evidence for acute fracture or dislocation. Surrounding soft tissues are unremarkable. No subcutaneous emphysema or radiodense foreign body. Impression: Normal examination . No acute fracture or dislocation. Electronically Signed by Rolly Wright MD 07/01/2019 02:49 A
--- NOTE | 2019-07-01 09:31 | REP ---
Head CT without contrast: Repeat dictation. History: Injury in a fall. Hit in head. Preliminary report is provided at the time of exam by virtual radiology. Comparison CT study is from August 31, 2013. CT findings: Bone window settings demonstrate an intact bony calvarium. There is no evidence of skull fracture or incidental bony calvarial lesion. The visualized paranasal sinuses appear clear. No intraorbital abnormality is seen. On soft tissue window setting images; the lateral, third, and fourth ventricles are normal in size and position. Cesar-white differentiation pattern is normal above and below the tentorium. There are is no evidence of intracranial hemorrhage. No mass, edema, infarction, or midline shift is seen. No extra-axial fluid collection is appreciated. Impression: Negative noncontrast head CT. Electronically Signed by Fredy Vora MD 07/01/2019 09:22 A
== END 2019-06-30 22:57 | disposition home or self-care (01) ==
LOC: M ED 19:51
DX: S09.90XA Unspecified injury of head, initial encounter (principal); S60.411A Abrasion of left index finger, initial encounter; L08.9 Local infection of the skin and subcutaneous tissue, unspecified; T76.11XA Adult physical abuse, suspected, initial encounter; Y92.89 Other specified places as the place of occurrence of the external cause; Z76.0 Encounter for issue of repeat prescription; R51 Headache; F41.9 Anxiety disorder, unspecified; F32.9 Major depressive disorder, single episode, unspecified; F11.10 Opioid abuse, uncomplicated; F17.210 Nicotine dependence, cigarettes, uncomplicated; Z86.718 Personal history of other venous thrombosis and embolism; Z79.899 Other long term (current) drug therapy; Z79.01 Long term (current) use of anticoagulants

== ENCOUNTER 2019-07-10 15:23 | Emergency (ER) | payer MEDICAID, SELFPAY ==
[~2019-07-10] VITALS: Ht 157.5 cm; Wt 77.3 kg
[~2019-07-10 15:23] MED LIST changes: +AUGM875T28 PO; +FLUO40CA PO
[2019-07-10 16:50] LABS: BASO % 0.2 % (0.0-1.0); EOS # 0.1 10^3/uL (0.0-0.5); EOS % 2.1 % (0.0-3.0); HEMATOCRIT 33.7 % (36.0-47.0); HEMOGLOBIN 11.1 g/dl (12.0-15.5); LYMPH # 2.2 10^3/uL (1.5-5.0); LYMPH % 45.4 % (24.0-44.0); MEAN CORPUSCULAR HEMOGLOBIN 30.5 pg (27.0-33.0); MEAN CORPUSCULAR HGB CONC 32.9 g/dl (32.0-36.5); MEAN CORPUSCULAR VOLUME 92.6 fl (80.0-96.0); MONO # 0.4 10^3/uL (0.0-0.8); MONO % 8.2 % (0.0-5.0); NEUTROPHILS # 2.1 10^3/uL (1.5-8.5); NEUTROPHILS % 43.9 % (36.0-66.0); PLATELET COUNT, AUTOMATED 282 10^3/uL (150-450); RED BLOOD COUNT 3.64 10^6/uL (4.00-5.40); WHITE BLOOD COUNT 4.7 10^3/uL (4.0-10.0)
[2019-07-10 17:08] LABS: INR 0.98; PROTHROMBIN TIME 12.7 SECONDS (11.8-14.0)
[2019-07-10 17:09] LABS: PARTIAL THROMBOPLASTIN TIME 32.6 SECONDS (25.0-38.4)
--- NOTE | 2019-07-10 17:12 | REP ---
DEEP VENOUS ULTRASONOGRAPHY BILATERAL THIGHS, RULE OUT DVT: REASON: Pain and swelling. TECHNIQUE: Multiple ultrasonographic images of the deep venous structures of the bilateral thighs were obtained from the common femoral vein to the popliteal vein along with Doppler interrogation and color flow Doppler images. FINDINGS: There is no abnormal echogenic material seen within any of the visualized deep venous structures that would suggest acute thrombosis. Coaptation is unremarkable throughout. Doppler interrogation shows an expected response to respiratory variability and augmentation. The color flow images show what appears to be a normal vascular pattern throughout. IMPRESSION: There is no ultrasonographic evidence of deep venous thrombosis involving any of the visualized deep venous structures of the bilateral thighs, as described above. Electronically Signed by Akin Churchill DO 07/10/2019 05:37 P
[2019-07-10 17:17] LABS: ALT/SGPT 22 U/L (12-78); BILIRUBIN,DIRECT < 0.1 MG/DL (0.0-0.2); BILIRUBIN,TOTAL 0.2 MG/DL (0.2-1.0); BLOOD UREA NITROGEN 9 MG/DL (7-18); CALCIUM LEVEL 8.8 MG/DL (8.5-10.1); CARBON DIOXIDE LEVEL 32 MEQ/L (21-32); CHLORIDE LEVEL 105 MEQ/L (98-107); CREATININE FOR GFR 0.64 MG/DL (0.55-1.30); GLOMERULAR FILTRATION RATE > 60.0 (>60); GLUCOSE, FASTING 76 MG/DL (70-100); POTASSIUM SERUM 4.6 MEQ/L (3.5-5.1); SODIUM LEVEL 140 MEQ/L (136-145); TOTAL PROTEIN 6.3 GM/DL (6.4-8.2)
[2019-07-10] MEDS ORDERED: ELIQ5TAB PO (18:46)
[2019-07-10 18:59] VITALS: BP 135/67
[2019-07-10 19:59] LABS: CHLAMYDIA DNA AMPLIFICATION NEGATIVE (NEGATIVE); GC DNA AMPLIFICATION NEGATIVE (NEGATIVE)
== END 2019-07-10 19:00 | disposition home or self-care (01) ==
LOC: M ED 15:23
DX: Z76.0 Encounter for issue of repeat prescription (principal); R22.43 Localized swelling, mass and lump, lower limb, bilateral; N89.8 Other specified noninflammatory disorders of vagina; Z86.718 Personal history of other venous thrombosis and embolism; Z79.899 Other long term (current) drug therapy; Z79.01 Long term (current) use of anticoagulants; F17.210 Nicotine dependence, cigarettes, uncomplicated

== ENCOUNTER 2019-07-23 12:39 | Emergency (ER) | payer MEDICAID, SELFPAY ==
[~2019-07-23] VITALS: Ht 157.5 cm; Wt 70.6 kg
[2019-07-23] MEDS ORDERED: PROZ40CA PO (12:49)
[2019-07-23] MEDS ORDERED: cloNIDine 0.1 MG TAB PO ONE (13:15)
[2019-07-23] MEDS ORDERED: CLON0.3T PO (13:35)
[2019-07-23 13:53] VITALS: BP 135/86
== END 2019-07-23 13:55 | disposition home or self-care (01) ==
LOC: M ED 12:39
DX: I10 Essential (primary) hypertension (principal); F41.9 Anxiety disorder, unspecified; Z76.0 Encounter for issue of repeat prescription

== ENCOUNTER → 2020-04-15 | Outpatient (CLI) | payer OTHER ==
[~2020-04-15] MED LIST changes: +ACET-838 PO; -BUPR150T3 PO; +BUPR150T4 PO; +CLON0.3T PO; +GABA-282 PO; -GABA-843 PO; -HYDR-2808 PO; +HYDR-4429 PO; -NON-325T5 PO
[2020-04-15 13:43] LABS: BASO % 0.5 % (0.0-1.0); EOS # 0.1 10^3/uL (0.0-0.5); EOS % 1.6 % (0.0-3.0); HEMATOCRIT 39.1 % (36.0-47.0); HEMOGLOBIN 12.7 g/dl (12.0-15.5); LYMPH # 1.3 10^3/uL (1.5-5.0); MEAN CORPUSCULAR HEMOGLOBIN 29.1 pg (27.0-33.0); MEAN CORPUSCULAR HGB CONC 32.5 g/dl (32.0-36.5); MEAN CORPUSCULAR VOLUME 89.5 fl (80.0-96.0); MONO # 0.4 10^3/uL (0.0-0.8); MONO % 9.2 % (2.0-8.0); NEUTROPHILS # 2.6 10^3/uL (1.5-8.5); NEUTROPHILS % 59.5 % (36.0-66.0); PLATELET COUNT, AUTOMATED 186 10^3/uL (150-450); RED BLOOD COUNT 4.37 10^6/uL (4.00-5.40); WHITE BLOOD COUNT 4.3 10^3/uL (4.0-10.0)
[2020-04-15 14:12] LABS: ALBUMIN 3.8 GM/DL (3.2-5.2); ALT/SGPT 15 U/L (12-78); BILIRUBIN,TOTAL 0.3 MG/DL (0.2-1.0); BLOOD UREA NITROGEN 10 MG/DL (7-18); CALCIUM LEVEL 9.4 MG/DL (8.5-10.1); CARBON DIOXIDE LEVEL 25 MEQ/L (21-32); CHLORIDE LEVEL 108 MEQ/L (98-107); CREATININE FOR GFR 0.78 MG/DL (0.55-1.30); GLOMERULAR FILTRATION RATE > 60.0 (>60); GLUCOSE, FASTING 85 MG/DL (70-100); POTASSIUM SERUM 3.8 MEQ/L (3.5-5.1); SODIUM LEVEL 140 MEQ/L (136-145); TOTAL PROTEIN 7.6 GM/DL (6.4-8.2)
[2020-04-15 14:19] LABS: HCG, SERUM QUALITATIVE NEGATIVE (NEGATIVE)
[2020-04-15 14:22] LABS: HEPATITIS B SURFACE ANTIBODY POSITIVE (POSITIVE)
[2020-04-15 14:32] LABS: HEPATITIS B SURFACE ANTIGEN NEGATIVE (NEGATIVE)
[2020-04-15 15:00] LABS: HEPATITIS C VIRUS ABY INDEX 0.1 INDEX (<0.8)
[2020-04-15 15:01] LABS: HIV 1&2 SCREEN CENTAUR NEGATIVE (NEGATIVE)
[2020-04-15 15:02] LABS: HEPATITIS A ANTIBODY IGM NEGATIVE (NEGATIVE)
== END ==
LOC: M LAB 13:00
PROVIDERS: ATTEND Nurse Practitioner Adult Health
DX: F11.20 Opioid dependence, uncomplicated (principal); Z20.2 Contact with and (suspected) exposure to infections with a predominantly sexual mode of transmission; Z20.5 Contact with and (suspected) exposure to viral hepatitis

== ENCOUNTER 2020-09-02 10:52 | Emergency (ER) | payer OTHER ==
[~2020-09-02 10:52] MED LIST changes: -ACET-838 PO; +ACET32TAB PO; +BUPR150T12 PO; -BUPR150T4 PO; +GABA-283 PO; -GABA-845 PO
[2020-09-02] MEDS ORDERED: BOOSTRIX/ADACEL VACCINE (DIPHTH/PERTUSS/ACELL/TETANUS) 0.5ML SYR IM ONE (11:10)
[2020-09-02] MEDS ORDERED: DERMABOND TOPICAL SKIN ADHESIVE TOP ONE (11:10)
[2020-09-02 12:15] VITALS: BP 144/92
== END 2020-09-02 12:20 | disposition home or self-care (01) ==
LOC: M ED 10:52
DX: Z04.81 Encounter for examination and observation of victim following forced sexual exploitation (principal); S51.831A Puncture wound without foreign body of right forearm, initial encounter; X99.8XXA Assault by other sharp object, initial encounter; Y92.9 Unspecified place or not applicable; Y93.9 Activity, unspecified; Y99.9 Unspecified external cause status; F31.9 Bipolar disorder, unspecified; F41.9 Anxiety disorder, unspecified; Z86.718 Personal history of other venous thrombosis and embolism; F17.200 Nicotine dependence, unspecified, uncomplicated; F19.11 Other psychoactive substance abuse, in remission; Z79.01 Long term (current) use of anticoagulants; Z79.899 Other long term (current) drug therapy

== ENCOUNTER → 2020-09-10 | Outpatient (REF) | payer OTHER | LOC: M SFHCPLAZ 15:49 | DX: Z00.00 Encounter for general adult medical examination without abnormal findings (principal); Z53.9 Procedure and treatment not carried out, unspecified reason ==

== ENCOUNTER 2021-12-24 04:08 | Emergency (ER) | payer OTHER ==
[~2021-12-24] VITALS: Ht 157.5 cm; Wt 68.2 kg
[2021-12-24 06:04] VITALS: BP 106/60
[2021-12-24] MEDS ORDERED: SUBO4MIS (06:04)
[2021-12-24] MEDS ORDERED: SUBO8MIS (06:04)
== END 2021-12-24 07:06 | disposition home or self-care (01) ==
LOC: EDBD 04:08 → M ED 04:08
DX: Z04.71 Encounter for examination and observation following alleged adult physical abuse (principal); S00.91XA Abrasion of unspecified part of head, initial encounter; Y04.8XXA Assault by other bodily force, initial encounter; Y07.03 Male partner, perpetrator of maltreatment and neglect; Y92.009 Unspecified place in unspecified non-institutional (private) residence as the place of occurrence of the external cause; F17.200 Nicotine dependence, unspecified, uncomplicated; Z79.01 Long term (current) use of anticoagulants; F19.10 Other psychoactive substance abuse, uncomplicated

== ENCOUNTER 2022-01-07 04:37 | Emergency (ER) | payer OTHER ==
[~2022-01-07] VITALS: Ht 157.5 cm; Wt 66.9 kg
[~2022-01-07 04:37] MED LIST changes: +SUBO4MIS; +SUBO8MIS
[2022-01-07] MEDS ORDERED: PROZ40CA PO (04:58)
[2022-01-07] MEDS ORDERED: TOPA100T12 PO (04:58)
[2022-01-07] MEDS ORDERED: WELL100T2 PO (04:58)
[2022-01-07 05:58] LABS: RSV AMPLIFICATION NEGATIVE (NEGATIVE)
[2022-01-07] MEDS ORDERED: ACETAMINOPHEN 500 MG TAB PO ONE (07:50)
[2022-01-07 08:53] LABS: BASO % 0.4 % (0.0-1.0); EOS # 0.1 10^3/uL (0.0-0.5); EOS % 1.8 % (0.0-3.0); HEMATOCRIT 39.2 % (36.0-47.0); HEMOGLOBIN 13.5 g/dl (12.0-15.5); LYMPH # 2.7 10^3/uL (1.5-5.0); LYMPH % 35.2 % (24.0-44.0); MEAN CORPUSCULAR HEMOGLOBIN 31.5 pg (27.0-33.0); MEAN CORPUSCULAR HGB CONC 34.4 g/dl (32.0-36.5); MEAN CORPUSCULAR VOLUME 91.4 fl (80.0-96.0); MONO # 0.7 10^3/uL (0.0-0.8); NEUTROPHILS # 4.1 10^3/uL (1.5-8.5); NEUTROPHILS % 53.3 % (36.0-66.0); PLATELET COUNT, AUTOMATED 220 10^3/uL (150-450); RED BLOOD COUNT 4.29 10^6/uL (4.00-5.40); WHITE BLOOD COUNT 7.7 10^3/uL (4.0-10.0)
[2022-01-07 11:05] VITALS: BP 142/72
[2022-01-07 11:09] LABS: GC DNA AMPLIFICATION NEGATIVE (NEGATIVE)
== END 2022-01-07 11:08 | disposition home or self-care (01) ==
LOC: M ED 04:37
DX: M25.511 Pain in right shoulder (principal); M25.522 Pain in left elbow; M79.604 Pain in right leg; Z72.51 High risk heterosexual behavior; N80.9 Endometriosis, unspecified; F11.10 Opioid abuse, uncomplicated; Z86.718 Personal history of other venous thrombosis and embolism; F17.200 Nicotine dependence, unspecified, uncomplicated; Z97.5 Presence of (intrauterine) contraceptive device; Z79.01 Long term (current) use of anticoagulants; Z79.899 Other long term (current) drug therapy

== ENCOUNTER 2022-02-24 03:14 | Emergency (ER) | payer OTHER ==
[~2022-02-24] VITALS: Ht 157.5 cm; Wt 73.4 kg
[~2022-02-24 03:14] MED LIST changes: +TOPA100T12 PO; +WELL100T2 PO
[2022-02-24] MEDS ORDERED: GABA-283 PO (03:40)
[2022-02-24] MEDS ORDERED: ACETAMINOPHEN 500 MG TAB PO ONE (12:00)
[2022-02-24] MEDS ORDERED: ONDANSETRON 4MG 2ML VIAL IV ONE (12:00)
[2022-02-24] MEDS ORDERED: NS 1,000 ML IV ONE (12:30)
[2022-02-24 12:40] VITALS: BP 114/55
[2022-02-24 12:43] LABS: BASO % 0.4 % (0.0-1.0); EOS # 0.2 10^3/uL (0.0-0.5); EOS % 3.9 % (0.0-3.0); HEMATOCRIT 42.8 % (36.0-47.0); LYMPH # 1.8 10^3/uL (1.5-5.0); LYMPH % 36.9 % (24.0-44.0); MEAN CORPUSCULAR HEMOGLOBIN 30.8 pg (27.0-33.0); MEAN CORPUSCULAR HGB CONC 32.7 g/dl (32.0-36.5); MEAN CORPUSCULAR VOLUME 94.1 fl (80.0-96.0); MONO # 0.5 10^3/uL (0.0-0.8); MONO % 10.6 % (2.0-8.0); NEUTROPHILS # 2.4 10^3/uL (1.5-8.5); NEUTROPHILS % 47.8 % (36.0-66.0); PLATELET COUNT, AUTOMATED 180 10^3/uL (150-450); RED BLOOD COUNT 4.55 10^6/uL (4.00-5.40); WHITE BLOOD COUNT 4.9 10^3/uL (4.0-10.0)
[2022-02-24 13:04] LABS: ALBUMIN 3.6 G/DL (3.2-5.2); BILIRUBIN,DIRECT 0.1 MG/DL (<0.4); BILIRUBIN,TOTAL 0.5 MG/DL (0.3-1.2); TOTAL PROTEIN 6.9 G/DL (5.7-8.2)
[2022-02-24] MEDS ORDERED: ISOVUE-370 76% 100ML VIAL As Ordered ONE (13:25)
[2022-02-24] MEDS ORDERED: MORPHINE 4 MG/ML 1ML VIAL IV ONE (13:35)
[2022-02-24] MEDS ORDERED: KETOROLAC 30 MG/ML 1ML VIAL IV ONE (14:35)
[2022-02-24] MEDS ORDERED: ONDA4TAB6 PO (15:30)
[2022-02-24] MEDS ORDERED: ELIQ5TAB PO (16:41)
== END 2022-02-24 17:52 | disposition home or self-care (01) ==
LOC: M ED 03:14
DX: F41.1 Generalized anxiety disorder (principal); N83.291 Other ovarian cyst, right side; R74.01 Elevation of levels of liver transaminase levels; Z86.718 Personal history of other venous thrombosis and embolism; R06.02 Shortness of breath; M79.604 Pain in right leg; Z76.0 Encounter for issue of repeat prescription; R07.89 Other chest pain; K59.00 Constipation, unspecified; F11.11 Opioid abuse, in remission; F17.200 Nicotine dependence, unspecified, uncomplicated; Z79.01 Long term (current) use of anticoagulants; Z97.5 Presence of (intrauterine) contraceptive device; Z79.899 Other long term (current) drug therapy
CPT/HCPCS: 71275; 76830; 76856; 80047; 80076; 81000; 81015; 83690; 84702; 85025; 87086; 93005; 93971; 93976; 96361; 96374; 96375; 99284; J1885; J2270; J2405

== ENCOUNTER 2022-04-11 17:17 | Inpatient (IN) | payer OTHER ==
[~2022-04-11] VITALS: Ht 157.5 cm; Wt 78.1 kg
[~2022-04-11 17:17] MED LIST changes: -SUBO4MIS; +SUBO4MIS SL; -SUBO8MIS; +SUBO8MIS SL
[2022-04-11] MEDS ORDERED: GABA800T4 PO (20:13)
[2022-04-11] MEDS ORDERED: BUPR150T12 PO (20:13)
[2022-04-11] MEDS ORDERED: HOME MED LIST COMPLETE! XX SCH (20:15)
[2022-04-11 20:52] LABS: HEMATOCRIT 40.3 % (36.0-47.0); HEMOGLOBIN 13.6 g/dl (12.0-15.5); MEAN CORPUSCULAR HEMOGLOBIN 31.1 pg (27.0-33.0); MEAN CORPUSCULAR HGB CONC 33.7 g/dl (32.0-36.5); PLATELET COUNT, AUTOMATED 176 10^3/uL (150-450); RED BLOOD COUNT 4.38 10^6/uL (4.00-5.40); WHITE BLOOD COUNT 5.4 10^3/uL (4.0-10.0)
[2022-04-11] MEDS ORDERED: BUPRENORPHINE/NALOXONE 8-2MG SUBLINGUAL TABLET(SUBOXONE) SL SCH (21:00)
[2022-04-11 21:15] LABS: BARBITURATES URINE NEGATIVE (NEGATIVE); BENZODIAZEPINES URINE NEGATIVE (NEGATIVE); CANNABINOIDS URINE NEGATIVE (NEGATIVE); METHADONE URINE NEGATIVE (NEGATIVE); OPIATES URINE NEGATIVE (NEGATIVE); PHENCYCLIDINE URINE NEGATIVE (NEGATIVE)
[2022-04-11 21:15] LABS: ETHYL ALCOHOL (ETHANOL) < 0.003 % (0.000-0.010)
[2022-04-11 21:17] LABS: ACETAMINOPHEN LEVEL < 2.0 UG/ML (10.0-20.0); ALBUMIN 3.5 G/DL (3.2-5.2); ALKALINE PHOSPHATASE 59 U/L (46-116); ALT/SGPT 10 U/L (7.0-40); AST/SGOT < 8 U/L (<34); BILIRUBIN,DIRECT 0.2 MG/DL (<0.4); BILIRUBIN,TOTAL 0.5 MG/DL (0.3-1.2); BLOOD UREA NITROGEN 12 MG/DL (9-23); CALCIUM LEVEL 8.7 MG/DL (8.5-10.1); CARBON DIOXIDE LEVEL 26 MMOL/L (20-31); CHLORIDE LEVEL 112 MMOL/L (98-107); CREATININE FOR GFR 0.75 MG/DL (0.55-1.30); GLOMERULAR FILTRATION RATE > 60.0 (>60); GLUCOSE, FASTING 93 MG/DL (60-100); SALICYLATE LEVEL < 3.0 MG/DL (<30); SODIUM LEVEL 141 MMOL/L (136-145); TOTAL PROTEIN 6.4 G/DL (5.7-8.2)
[2022-04-11 21:20] LABS: THYROID STIMULATING HORMONE 1.073 uIU/ML (0.55-4.78)
[2022-04-11 21:30] LABS: AMPHETAMINES LEVEL URINE POSITIVE (NEGATIVE); COCAINE METABOLITE URINE POSITIVE (NEGATIVE)
[2022-04-11 21:30] LABS: HCG, SERUM QUALITATIVE NEGATIVE (NEGATIVE)
[2022-04-12] MEDS ORDERED: IBUPROFEN 400MG TAB PO PRN (08:35)
[2022-04-12] MEDS ORDERED: MOM 30ML SUSPENSION UDC PO PRN (08:35)
[2022-04-12] MEDS ORDERED: MAALOX 30 ML SUSP *UDC PO PRN (08:35)
[2022-04-12] MEDS ORDERED: cloNIDine 0.1MG TABLET PO PRN (08:35)
[2022-04-12] MEDS ORDERED: traZODone 50 MG TAB PO PRN (08:35)
[2022-04-12] MEDS: NICOTINE 21MG/24HR 1 EA TRANSDERMAL TD SCH (09:37)
[2022-04-12] MEDS: BUPRENORPHINE/NALOXONE 8-2MG SUBLINGUAL TABLET(SUBOXONE) SL SCH ×3 (09:38→20:35)
[2022-04-12] MEDS: GABAPENTIN 400MG CAP PO SCH ×3 (09:38→20:35)
[2022-04-12] MEDS: TOPIRAMATE (TopAMAX) 100 MG TAB PO SCH ×2 (09:39→20:36)
[2022-04-12] MEDS: FLUoxetine 20MG CAP PO SCH (09:39)
[2022-04-12] MEDS: buPROPion **XL** TABLET 150MG (WELLBUTRIN XL) PO SCH (09:40)
[2022-04-12 14:55] VITALS: BP 118/70
[2022-04-12] MEDS: BUPRENORPHINE/NALOXONE 2-0.5MG SUBLINGUAL TABLET(SUBOXONE) SL SCH (20:36)
[2022-04-13 06:39] VITALS: BP 98/56
[2022-04-13] MEDS: APIXABAN 5 MG TAB (ELIQUIS) PO SCH ×2 (08:24→21:14)
[2022-04-13] MEDS: GABAPENTIN 400MG CAP PO SCH ×3 (08:24→21:14)
[2022-04-13] MEDS: TOPIRAMATE (TopAMAX) 100 MG TAB PO SCH ×2 (08:24→21:14)
[2022-04-13] MEDS: buPROPion **XL** TABLET 150MG (WELLBUTRIN XL) PO SCH (08:24)
[2022-04-13] MEDS: FLUoxetine 20MG CAP PO SCH (08:24)
[2022-04-13] MEDS: NICOTINE 21MG/24HR 1 EA TRANSDERMAL TD SCH (08:27)
[2022-04-13] MEDS: BUPRENORPHINE/NALOXONE 8-2MG SUBLINGUAL TABLET(SUBOXONE) SL SCH ×3 (08:28→21:14)
[2022-04-13] MEDS: OXcarbazepine 150 MG TAB PO SCH (11:51)
[2022-04-13] MEDS: cloNIDine 0.1MG TABLET PO PRN ×2 (11:52→21:14)
[2022-04-13 18:46] VITALS: BP 92/51
[2022-04-13] MEDS: BUPRENORPHINE/NALOXONE 2-0.5MG SUBLINGUAL TABLET(SUBOXONE) SL SCH (21:14)
[2022-04-14 05:50] VITALS: BP 98/56
[2022-04-14] MEDS ORDERED: FLUoxetine 20MG CAP PO SCH (09:00)
[2022-04-14] MEDS: buPROPion **XL** TABLET 150MG (WELLBUTRIN XL) PO SCH (09:19)
[2022-04-14] MEDS: TOPIRAMATE (TopAMAX) 100 MG TAB PO SCH ×2 (09:19→21:33)
[2022-04-14] MEDS: APIXABAN 5 MG TAB (ELIQUIS) PO SCH ×2 (09:19→21:33)
[2022-04-14] MEDS: OXcarbazepine 150 MG TAB PO SCH (09:19)
[2022-04-14] MEDS: FLUoxetine 20MG CAP PO SCH (09:19)
[2022-04-14] MEDS: GABAPENTIN 400MG CAP PO SCH ×3 (09:19→21:33)
[2022-04-14] MEDS: BUPRENORPHINE/NALOXONE 8-2MG SUBLINGUAL TABLET(SUBOXONE) SL SCH ×3 (09:19→21:33)
[2022-04-14] MEDS: NICOTINE 21MG/24HR 1 EA TRANSDERMAL TD SCH (09:19)
[2022-04-14] MEDS: LIDOCAINE 5% (LIDODERM) PATCH TD SCH (09:20)
[2022-04-14] MEDS: cloNIDine 0.1MG TABLET PO PRN (09:26)
[2022-04-14 16:12] VITALS: BP 100/56
[2022-04-14] MEDS ORDERED: ARIPiprazole 2 MG TAB PO SCH (21:00)
[2022-04-14] MEDS: BUPRENORPHINE/NALOXONE 2-0.5MG SUBLINGUAL TABLET(SUBOXONE) SL SCH (21:33)
[2022-04-15 06:27] VITALS: BP 90/50
[2022-04-15] MEDS: buPROPion **XL** TABLET 150MG (WELLBUTRIN XL) PO SCH (08:31)
[2022-04-15] MEDS: BUPRENORPHINE/NALOXONE 8-2MG SUBLINGUAL TABLET(SUBOXONE) SL SCH ×3 (08:31→20:00)
[2022-04-15] MEDS: GABAPENTIN 400MG CAP PO SCH ×3 (08:31→20:00)
[2022-04-15] MEDS: OXcarbazepine 150 MG TAB PO SCH (08:31)
[2022-04-15] MEDS: TOPIRAMATE (TopAMAX) 100 MG TAB PO SCH ×2 (08:31→20:00)
[2022-04-15] MEDS: APIXABAN 5 MG TAB (ELIQUIS) PO SCH ×2 (08:31→20:00)
[2022-04-15] MEDS: FLUoxetine 20MG CAP PO SCH (08:31)
[2022-04-15] MEDS: LIDOCAINE 5% (LIDODERM) PATCH TD SCH (10:19)
[2022-04-15] MEDS: NICOTINE 21MG/24HR 1 EA TRANSDERMAL TD SCH (10:19)
[2022-04-15 16:34] VITALS: BP 115/75
[2022-04-15] MEDS: LURASIDONE 20 MG TAB (LATUDA) PO SCH (18:07)
[2022-04-15] MEDS: BUPRENORPHINE/NALOXONE 2-0.5MG SUBLINGUAL TABLET(SUBOXONE) SL SCH (20:00)
[2022-04-15] MEDS: cloNIDine 0.1MG TABLET PO PRN (20:00)
[2022-04-16 06:08] VITALS: BP 116/74
[2022-04-16] MEDS: GABAPENTIN 400MG CAP PO SCH ×3 (08:04→20:35)
[2022-04-16] MEDS: buPROPion **XL** TABLET 150MG (WELLBUTRIN XL) PO SCH (08:04)
[2022-04-16] MEDS: OXcarbazepine 150 MG TAB PO SCH (08:04)
[2022-04-16] MEDS: TOPIRAMATE (TopAMAX) 100 MG TAB PO SCH ×2 (08:04→20:35)
[2022-04-16] MEDS: BUPRENORPHINE/NALOXONE 8-2MG SUBLINGUAL TABLET(SUBOXONE) SL SCH ×3 (08:04→20:34)
[2022-04-16] MEDS: NICOTINE 21MG/24HR 1 EA TRANSDERMAL TD SCH (08:05)
[2022-04-16] MEDS: APIXABAN 5 MG TAB (ELIQUIS) PO SCH ×2 (08:05→20:35)
[2022-04-16] MEDS: FLUoxetine 20MG CAP PO SCH (08:05)
[2022-04-16] MEDS: LIDOCAINE 5% (LIDODERM) PATCH TD SCH (09:00)
[2022-04-16 16:09] VITALS: BP 126/74
[2022-04-16] MEDS: LURASIDONE 20 MG TAB (LATUDA) PO SCH (17:58)
[2022-04-16] MEDS: cloNIDine 0.1MG TABLET PO PRN (20:34)
[2022-04-16] MEDS: BUPRENORPHINE/NALOXONE 2-0.5MG SUBLINGUAL TABLET(SUBOXONE) SL SCH (20:35)
[2022-04-17] MEDS: diphenhydrAMINE 25MG CAP PO PRN ×2 (04:04→20:11)
[2022-04-17 06:35] VITALS: BP 108/71
[2022-04-17] MEDS: LIDOCAINE 5% (LIDODERM) PATCH TD SCH (09:00)
[2022-04-17] MEDS: OXcarbazepine 150 MG TAB PO SCH (10:09)
[2022-04-17] MEDS: buPROPion **XL** TABLET 150MG (WELLBUTRIN XL) PO SCH (10:09)
[2022-04-17] MEDS: APIXABAN 5 MG TAB (ELIQUIS) PO SCH ×2 (10:09→20:08)
[2022-04-17] MEDS: TOPIRAMATE (TopAMAX) 100 MG TAB PO SCH ×2 (10:10→20:08)
[2022-04-17] MEDS: FLUoxetine 20MG CAP PO SCH (10:11)
[2022-04-17] MEDS: GABAPENTIN 400MG CAP PO SCH ×3 (10:11→20:08)
[2022-04-17] MEDS: NICOTINE 21MG/24HR 1 EA TRANSDERMAL TD SCH (10:12)
[2022-04-17] MEDS: BUPRENORPHINE/NALOXONE 8-2MG SUBLINGUAL TABLET(SUBOXONE) SL SCH ×3 (10:13→20:08)
[2022-04-17] MEDS: BENZOCAINE 10% 9GM TUBE (ANBESOL) TOP PRN ×2 (14:47→20:16)
[2022-04-17 17:18] VITALS: BP 124/68
[2022-04-17] MEDS: LURASIDONE 20 MG TAB (LATUDA) PO SCH (17:46)
[2022-04-17] MEDS: BUPRENORPHINE/NALOXONE 2-0.5MG SUBLINGUAL TABLET(SUBOXONE) SL SCH (20:08)
[2022-04-17] MEDS: cloNIDine 0.1MG TABLET PO PRN (20:10)
[2022-04-18 06:24] VITALS: BP 123/71
[2022-04-18] MEDS: LIDOCAINE 5% (LIDODERM) PATCH TD SCH (09:00)
[2022-04-18] MEDS: TOPIRAMATE (TopAMAX) 100 MG TAB PO SCH ×2 (09:19→20:30)
[2022-04-18] MEDS: APIXABAN 5 MG TAB (ELIQUIS) PO SCH ×2 (09:19→20:30)
[2022-04-18] MEDS: buPROPion **XL** TABLET 150MG (WELLBUTRIN XL) PO SCH (09:19)
[2022-04-18] MEDS: OXcarbazepine 150 MG TAB PO SCH (09:19)
[2022-04-18] MEDS: FLUoxetine 20MG CAP PO SCH (09:20)
[2022-04-18] MEDS: GABAPENTIN 400MG CAP PO SCH ×3 (09:20→20:31)
[2022-04-18] MEDS: NICOTINE 21MG/24HR 1 EA TRANSDERMAL TD SCH (09:21)
[2022-04-18] MEDS: BUPRENORPHINE/NALOXONE 8-2MG SUBLINGUAL TABLET(SUBOXONE) SL SCH ×3 (09:24→20:30)
[2022-04-18] MEDS: BENZOCAINE 10% 9GM TUBE (ANBESOL) TOP PRN ×3 (10:49→22:04)
[2022-04-18 15:43] VITALS: BP 133/74
[2022-04-18] MEDS: LURASIDONE 20 MG TAB (LATUDA) PO SCH (17:35)
[2022-04-18] MEDS: BUPRENORPHINE/NALOXONE 2-0.5MG SUBLINGUAL TABLET(SUBOXONE) SL SCH (20:30)
[2022-04-18] MEDS: cloNIDine 0.1MG TABLET PO PRN (20:48)
[2022-04-18] MEDS: diphenhydrAMINE 25MG CAP PO PRN (22:05)
[2022-04-18] MEDS: ACETAMINOPHEN TAB 650MG DOSE (2X325MG) PO PRN (22:05)
[2022-04-19 06:56] LABS: CHOLESTEROL RISK RATIO 2.96 (<5); HDL CHOLESTEROL 54.3 MG/DL (>40); LDL CHOLESTEROL 87.9 MG/DL (<100)
[2022-04-19 06:59] VITALS: BP 95/51
[2022-04-19] MEDS: APIXABAN 5 MG TAB (ELIQUIS) PO SCH ×2 (08:37→20:16)
[2022-04-19] MEDS: GABAPENTIN 400MG CAP PO SCH ×3 (08:37→20:16)
[2022-04-19] MEDS: FLUoxetine 20MG CAP PO SCH (08:37)
[2022-04-19] MEDS: BUPRENORPHINE/NALOXONE 8-2MG SUBLINGUAL TABLET(SUBOXONE) SL SCH ×3 (08:37→20:16)
[2022-04-19] MEDS: buPROPion **XL** TABLET 150MG (WELLBUTRIN XL) PO SCH (08:38)
[2022-04-19] MEDS: OXcarbazepine 150 MG TAB PO SCH (08:41)
[2022-04-19] MEDS: TOPIRAMATE (TopAMAX) 100 MG TAB PO SCH ×2 (08:41→20:16)
[2022-04-19] MEDS: LIDOCAINE 5% (LIDODERM) PATCH TD SCH (09:00)
[2022-04-19] MEDS: NICOTINE 21MG/24HR 1 EA TRANSDERMAL TD SCH (09:00)
[2022-04-19] MEDS ORDERED: MIRTAZAPINE 15 MG TAB PO PRN (15:50)
[2022-04-19] MEDS ORDERED: MOM 30ML SUSPENSION UDC PO ONE (16:10)
[2022-04-19] MEDS ORDERED: BISACODYL 10MG SUPP PR ONE (16:10)
[2022-04-19 16:53] VITALS: BP 115/56
[2022-04-19] MEDS: LURASIDONE 20 MG TAB (LATUDA) PO SCH (17:49)
[2022-04-19] MEDS: SENOKOT S TAB PO SCH (20:16)
[2022-04-19] MEDS: BENZOCAINE 10% 9GM TUBE (ANBESOL) TOP PRN (20:16)
[2022-04-19] MEDS: BUPRENORPHINE/NALOXONE 2-0.5MG SUBLINGUAL TABLET(SUBOXONE) SL SCH (20:16)
[2022-04-19 20:18] VITALS: BP 114/56
[2022-04-19] MEDS: cloNIDine 0.1MG TABLET PO PRN (20:18)
[2022-04-19] MEDS: ACETAMINOPHEN TAB 650MG DOSE (2X325MG) PO PRN (20:19)
[2022-04-20 06:23] VITALS: BP 99/55
[2022-04-20] MEDS ORDERED: FLUoxetine 20MG CAP PO SCH (09:00)
[2022-04-20] MEDS: LIDOCAINE 5% (LIDODERM) PATCH TD SCH (09:00)
[2022-04-20] MEDS: OXcarbazepine 150 MG TAB PO SCH (09:44)
[2022-04-20] MEDS: BUPRENORPHINE/NALOXONE 8-2MG SUBLINGUAL TABLET(SUBOXONE) SL SCH (09:45)
[2022-04-20] MEDS: TOPIRAMATE (TopAMAX) 100 MG TAB PO SCH (09:45)
[2022-04-20] MEDS: APIXABAN 5 MG TAB (ELIQUIS) PO SCH (09:45)
[2022-04-20] MEDS: SENOKOT S TAB PO SCH (09:45)
[2022-04-20] MEDS: buPROPion **XL** TABLET 150MG (WELLBUTRIN XL) PO SCH (09:45)
[2022-04-20] MEDS: GABAPENTIN 400MG CAP PO SCH (09:45)
[2022-04-20] MEDS: NICOTINE 21MG/24HR 1 EA TRANSDERMAL TD SCH (09:46)
[2022-04-20] MEDS ORDERED: FLUO40CA PO (10:50)
[2022-04-20] MEDS ORDERED: NICO21PAT TD (10:50)
[2022-04-20] MEDS ORDERED: OXCA150T21 PO (10:50)
[2022-04-20] MEDS ORDERED: LATU20TA PO (10:50)
[2022-04-20] MEDS ORDERED: BUPR150T12 PO (10:50)
[2022-04-20] MEDS ORDERED: LIDO5TD TD (10:50)
[2022-04-20] MEDS ORDERED: MIRT-10 PO (10:50)
[2022-04-20] MEDS ORDERED: NARC1SPR NARES (10:51)
== END 2022-04-20 13:43 | disposition home or self-care (01) | DRG 751 ==
LOC: M ED 17:17 → M ED INP 04-12 08:34 → M PSY 04-12 15:08
PROVIDERS: ADMIT Student in an Organized Health Care Education/Training Program; ATTEND Student in an Organized Health Care Education/Training Program
DX: F33.2 Major depressive disorder, recurrent severe without psychotic features (principal); R45.851 Suicidal ideations; F43.10 Post-traumatic stress disorder, unspecified; F60.89 Other specific personality disorders; F14.94 Cocaine use, unspecified with cocaine-induced mood disorder; F17.210 Nicotine dependence, cigarettes, uncomplicated; M54.9 Dorsalgia, unspecified; G89.29 Other chronic pain; Z86.718 Personal history of other venous thrombosis and embolism; Z86.711 Personal history of pulmonary embolism; R91.8 Other nonspecific abnormal finding of lung field; M51.36 Other intervertebral disc degeneration, lumbar region; Z20.822 Contact with and (suspected) exposure to COVID-19; Z79.899 Other long term (current) drug therapy; Z79.01 Long term (current) use of anticoagulants; Z62.810 Personal history of physical and sexual abuse in childhood; Z91.410 Personal history of adult physical and sexual abuse; Z65.3 Problems related to other legal circumstances; Z63.0 Problems in relationship with spouse or partner; Z63.8 Other specified problems related to primary support group

== ENCOUNTER 2023-07-19 16:47 | Emergency (ER) | payer OTHER ==
[~2023-07-19] VITALS: Ht 157.5 cm; Wt 81.4 kg
[~2023-07-19 16:47] MED LIST changes: -GABA-283 PO; +GABA-284 PO; +LATU20TA PO; +LIDO5TD TD; +MIRT-10 PO; +NARC1SPR NARES; +NICO21PAT TD; +OXCA150T21 PO
[2023-07-19 20:35] VITALS: BP 161/96; TEMP 98.7; O2SAT 100
== END 2023-07-19 21:40 | disposition left against medical advice (07) ==
LOC: M ED 16:47
DX: Z53.21 Procedure and treatment not carried out due to patient leaving prior to being seen by health care provider (principal)